=== PATIENT | male | born 1950 | race American Indian/Alaskan Native ===

== ENCOUNTER 2017-10-17 08:38 | Day surgery (SDC) | payer MEDICARE ==
[2017-10-16 14:39] VITALS: BMI 22.6
[2017-10-17] MEDS ORDERED: Propofol 10 mg/ml Inj (20 ML) ONE (10:56)
[2017-10-17] MEDS ORDERED: Lactated Ringer's 1,000 ML IV ONE (11:56)
[2017-10-17 12:53] VITALS: TEMP 97.1
[2017-10-17 12:55] VITALS: RESP 17
[2017-10-17 12:56] VITALS: PULSE 71
[2017-10-17 13:31] VITALS: BP 139/61; O2SAT 100
== END 2017-10-17 13:15 | disposition home or self-care (01) ==
LOC: C.ENDO 08:38
PROVIDERS: ATTEND Internal Medicine Gastroenterology
DX: K29.40 Chronic atrophic gastritis without bleeding (principal); R13.10 Dysphagia, unspecified; B96.81 Helicobacter pylori [H. pylori] as the cause of diseases classified elsewhere; I10 Essential (primary) hypertension; F32.9 Major depressive disorder, single episode, unspecified
CPT/HCPCS: 43239; 88305; J2001; J2704; J7120

== ENCOUNTER 2017-12-26 06:54 | Day surgery (SDC) | payer MEDICARE ==
[2017-12-26 07:11] VITALS: BMI 24.9
[2017-12-26 07:33] VITALS: O2SAT 100
[2017-12-26] MEDS ORDERED: Lactated Ringer's 500 ML IV ONE ×2 (09:00→09:54)
--- NOTE | 2017-12-26 09:01 | CP.SDSHP ---
Same Day Surgery H & P - History Proposed Procedure: colonoscopy Pre-Op Diagnosis: anemia, weight loss - Previous Medical/Surgical History Cardiac: Hypertension Comments: prostate cancer, depression - Allergies Allergies: Allergies No Known Allergies Allergy (Verified 12/25/17 12:14) - Physical Exam General Appearance: NAD Vital Signs: Vital Signs 12/26/17 07:18 Temperature 98.6 F Pulse Rate 70 Respiratory 16 Rate Blood Pressure 134/68 O2 Sat by Pulse 100 Oximetry Mental Status: Alert & Oriented x3 Neuro: WNL Heart: WNL Lungs: WNL GI: WNL - {Optional Preform as Required} Abdomen: WNL - Impression Pt. Evaluated Today:Candidate for Anesthesia & Procedure: Yes - Date & Time Date: 12/26/17 Time: 09:01 Short Stay Discharge - Short Stay Discharge Admitting Diagnosis/Reason for Visit: SCREENING Disposition: HOME/ ROUTINE
[2017-12-26] MEDS ORDERED: Propofol 10 mg/ml Inj (20 ML) ONE ×2 (09:03→09:31)
[2017-12-26] MEDS ORDERED: Lidocaine Hydrochloride 5 ML INJ ONE (09:04)
[2017-12-26 10:09] VITALS: TEMP 96.9
[2017-12-26 12:15] VITALS: BP 133/64; PULSE 71; RESP 18
== END 2017-12-26 11:15 | disposition home or self-care (01) ==
LOC: C.ENDO 06:54
PROVIDERS: ATTEND Internal Medicine Gastroenterology
DX: D12.2 Benign neoplasm of ascending colon (principal); D12.3 Benign neoplasm of transverse colon; R63.4 Abnormal weight loss; I10 Essential (primary) hypertension; D64.9 Anemia, unspecified; F32.9 Major depressive disorder, single episode, unspecified; Z85.46 Personal history of malignant neoplasm of prostate; Z90.79 Acquired absence of other genital organ(s); Z79.899 Other long term (current) drug therapy